=== PATIENT | female | born 1995 | race Two or more races ===

== ENCOUNTER 2025-02-24 08:41 | Day surgery (SDC) | payer BC, OTHER ==
[~2025-02-24] VITALS: Ht 165.1 cm; Wt 84.3 kg
--- NOTE | 2025-02-24 09:01 | ED.PDOC ---
CONSULAR OFFICER HPI Comments THIS IS A 29 YEAR-OLD FEMALE, WITH A HX OF PCOS, WHO PRESENTS TO THE ED WITH A CHIEF COMPLAINT OF VAGINAL BLEED FOR X4 DAYS. PATIENT STATES SHE WAS SEEN BY DR. ESCALERA YESTERDAY, AND WAS DIAGNOSED WITH PROLAPSED UTERINE FIBROIDS. PER PATIENT, SHE WAS TOLD TO COME TO THE ED FOR FIBROID SURGERY, D&C, AND HYSTEROSCOPE TODAY. PATIENT DENIES BEING . PATIENT HAS NO FURTHER COMPLAINTS AT THIS TIME AND OTHERWISE DENIES ABDOMINAL PAIN, CHEST PAIN, DYSURIA, OR FEVER. PATIENT IS ALERT, ORIENTED X 4, AND HAS STEADY GAIT. Chief Complaint: Vaginal Bleed Time Seen by MD: 08:54 Reviewed Notes: Nurses Notes, Medications, Allergies Allergies: Coded Allergies: NO KNOWN ALLERGIES (Unverified , 02/24/25) Information Source: Patient Mode of Arrival: Ambulatory Timing: Days Severity: Moderate Vaginal Discharge: None Vaginal Lesions: None Bleeding Quality: Bright Red, Clotted Vaginal Mass: None Onset Of Mass/Bleeding: Spontaneous Control: None Blood Type: Unknown Symptoms of Possible : None Associated Signs and Symptoms: Vaginal Bleeding Past Medical History Past Medical History (Other): PCOS Surgical History: Denies all surgeries MESSENGER FLOORPERSON History: No Pertinent MESSENGER FLOORPERSON History Family History Family History: Reviewed,noncontributory to illness, No family hx of Cancer, No family hx of DM, No family hx of Heart patrice, No family hx of HTN, No family hx ofKidney patrice, No family hx of Liver patrice, No family hx of Lung patrice, No family hx of Stroke Social History Smoker: Non-Smoker Alcohol: Denies ETOH Use Drugs: Denies Drug Use Lives In: Home Constitutional: denies: chills, diaphoresis, fatigue, fever, malaise, sweats, weakness, others EENTM: denies: blurred vision, double vision, ear bleeding, ear discharge, ear drainage, ear pain, ear ringing, eye pain, eye redness, hearing loss, mouth pain, mouth swelling, nasal discharge, nose bleeding, nose congestion, nose pain, photophobia, tearing, throat pain, throat swelling, voice changes, others Respiratory: denies: cough, hemoptysis, orthopnea, SOB at rest, shortness of breath, SOB with excertion, stridor, wheezing, others Cardiovascular: denies: chest pain, dizzy spells, diaphoresis, Dyspnea on exertion, edema, irregular heart beat, left arm pain, lightheadedness, palpitations, PND, syncope, others Gastrointestinal: denies: abdomen distended, abdominal pain, blood streaked bowels, constipated, diarrhea, dysphagia, difficulty swallowing, hematemesis, melena, nausea, poor appetite, poor fluid intake, rectal bleeding, rectal pain, vomiting, others Genitourinary: reports: abnormal vagina bleeding; denies: burning, dyspareunia, dysuria, flank pain, frequency, hematuria, incontinence, pain, , vagina discharge, urgency, others Neurological: denies: dizziness, fainting, headache, left sided numbness, left sided weakness, numbness, paresthesia, pre-existing deficit, right sided numbness, right sided weakness, seizure, speech problems, tingling, tremors, weakness, others Musculoskeletal: denies: back pain, gout, joint pain, joint swelling, muscle pain, muscle stiffness, neck pain, others Integumetry: denies: bruises, change in color, change in hair/nails, dryness, laceration, lesions, lumps, rash, wounds, others Allergic/Immunocompromised: denies: Difficulty Healing, Frequent Infections, Hives, Itching, others Hematologic/Lymphatic: denies: anemia, blood clots, easy bleeding, easy bruising, swollen glands, others Endocrine: denies: excessive hunger, excessive sweating, excessive thirst, excessive urination, flushing, intolerance to cold, intolerance to heat, une xplained weight gain, unexplained weight loss, others Psychiatric: denies: anxiety, bipolar disorder, depression, hopeless, panic disorder, schizophrenia, sleepless, suicidal, others All Other Systems: Reviewed and Negative Physical Exam General Appearance: No Apparent Distress, Normal HEENT: Normal ENT Inspection, PERRL/EOMI, Pharynx Normal, TMs Normal Neck: Full Range of Motion, Non-Tender, Normal, Normal Inspection Respiratory: Chest Non-Tender, Lungs Clear, No Accessory Muscle Use, No Re spiratory Distress, Normal Breath Sounds Cardiovascular: No Edema, No JVD, No Murmur, No Gallop, Normal Peripheral Pulses, Regular Rate/Rhythm Breast Exam: Deferred Gastrointestinal: No Organomegaly, Non Tender, No Pulsatile Mass, Normal Bowel Sounds, Soft Genitalia: Deferred Pelvic: Normal External Exam, Tender Uterus, Vaginal Bleeding (VAGINAL BLEEDING, NO BLOOD CLOTS. ) Rectal: Deferred Extremities: No calf tenderness, Normal capillary refill, Normal inspection, Normal range of motion, Non-tender, No pedal edema Musculoskeletal : Apperance: Normal Neurologic: Alert, stripper machine operator II-XII nml as Tested, No Motor Deficits, Normal Affect, Normal Mood, No Sensory Deficits Cerebellar Function: Normal Reflexes: Normal Skin: Dry, Normal Color, Warm Peripheral Pulses: 2+ carotid (R), 2+ carotid (L) Lymphatic: No Adenopathy Was a procedure done? Was a procedure done?: No Differential Diagnosis (MESSENGER FLOORPERSON) Vaginal Bleeding: - Threatened, Menstrual Bleeding, UTI, Vaginitis Mass / Lesion: Bartholin Cyst X-Ray, Labs, Meds, VS Vital Signs Date Time Temp Pulse Resp B/P (MAP) Pulse Ox O2 Delivery O2 Flow Rate FiO2 02/24/25 08:43 98.2 102 18 114/77 96 98.2 Lab Test 02/24/25 09:12 02/24/25 08:58 Range/Units White Blood Count 8.3 4.4-10.8 10^3/uL Red Blood Count 5.31 H 4.0-5.20 10^6/uL Hemoglobin 13.8 12.2-16.2 g/dL Hematocrit 40.9 36.0-46.0 % Mean Corpuscular Volume 77.0 L 80.0-100.0 fL Mean Corpuscular Hemoglobin 26.0 L 28.0-32.0 pg Mean Corpuscular Hemoglobin Concent 33.7 32.0-36.0 g/dL Red Cell Distribution Width 16.1 H 11.8-14.3 % Platelet Count 493 H 140-450 10^3/uL Mean Platelet Volume 6.8 L 6.9-10.8 fL Neutrophils (%) (Auto) 69.2 37.0-80.0 % Lymphocytes (%) (Auto) 19.4 10.0-50.0 % Monocytes (%) (Auto) 8.1 0.0-12.0 % Eosinophils (%) (Auto) 2.6 0.0-7.0 % Basophils (%) (Auto) 0.7 0.0-2.0 % Neutrophils # (Auto) 5.7 1.6-8.6 10 ^3/uL Lymphocytes # (Auto) 1.6 0.4-5.4 10 ^3/uL Monocytes # (Auto) 0.7 0-1.3 10 ^3/uL Eosinophils # (Auto) 0.2 0-0.8 10 ^3/uL Basophils # (Auto) 0.1 0-0.2 10 ^3/uL Nucleated Red Blood Cells 0.0 % Prothrombin Time 11.0 9.3-11.8 sec Prothrombin Time INR 1.04 0.9-1.15 Sodium Level 142 136-145 mmol/L Potassium Level 4.5 3.5-5.1 mmol/L Chloride Level 106 98-107 mmol/L Carbon Dioxide Level 28 20-31 mmol/L Anion Gap 8 5-15 Blood Urea Nitrogen 10 9-23 mg/dL Creatinine 0.80 0.550-1.02 mg/dL Glomerular Filtration Rate Calc 101 >90 mL/min BUN/Creatinine Ratio 12.5 10.0-20.0 Serum Glucose 102 74-106 mg/dL Calcium Level 9.2 8.7-10.4 mg/dL Beta HCG, Quantitative 0.3 L 1.5-4.2 mIU/mL Urine Color Light-yellow Yellow Urine Clarity Clear Clear Urine pH 7.5 5.0-9.0 Urine Specific [place] 1.016 1.001-1.035 Urine Protein Negative Negative Urine Ketones Negative Negative Urine Blood 3+ H Negative /uL Urine Nitrite Negative Negative Urine Bilirubin Negative Negative Urine Urobilinogen Normal Negative mg/dL Urine Leukocyte Esterase Trace Negative /uL Urine RBC 494 0 - 4 /hpf Urine Microscopic WBC 1 0-5 /HPF Urine Squamous Epithelial Cells Few <5 /hpf Urine Bacteria Few H None Seen /hpf Urine Mucus Few None Seen Urine Yeast (Budding) Occasional None Seen /hpf Urine Glucose Normal Normal mg/dL Current Medications Medications (Trade) Dose Ordered Sig/Keren Route Start Time Stop Time Status Last Admin Sodium Chloride 1,000 ml @ 1,000 mls/hr Q1H ONCE IV 02/24/25 09:00 02/24/25 09:59 DC 02/24/25 10:[address] [address] Ph: [phone] DIAGNOSTIC IMAGING Diagnostic Imaging Report : [id number] Signed PATIENT: EDI GARCIAARISTIDES AACCT: [id number] UNIT: [id number] : 1995 LOC: ER ROOM / BED: / AGE / SEX: 29 / F ADM STATUS: REG ER SERVICE 0950 ORDERING PHYSICIAN: JOSH JORGE PROCEDURE(s): PELUS - PELVIC REASON: VAGINAL BLEEDING ORDER NUMBER(s): [id number], ACCESSION NUMBER(s): [id number] INDICATION: VAGINAL BLEEDING TECHNIQUE: Multiple real-time grayscale transabdominal and transvaginal sonographic images along with color and duplex Doppler of the uterus and ovaries were obtained. COMPARISON: None FINDINGS: The uterus measures 7.7 x 5.0 x 4.7 cm. The endometrial stripe measur es 0.2 cm. Intrauterine device is visualized in the the endometrial cavity. There is a hyperchoic mass in the cervix with hyperemia measuring 2.4 cm. The right ovary measures 3.8 x 2.2 x 3.2 cm. The left ovary measures 2.9 x 1.8 x 2.4 cm. Subsequent color and duplex Doppler interrogation of the ovaries demonstrated symmetric vascular flow to both ovaries, though this does not exclude the possibility of torsion due to the dual blood supply. IMPRESSION: There is a hyperchoic mass in the cervix with hyperemia measuring 2.4 cm. Recommend correlation with gynecologic exam. Intrauterine device is visualized in appropriate position. X-Ray, Labs, Meds, VS Comment EXTERNAL MEDICAL RECORDS REVIEWED: [NONE] INDEPENDENT HISTORIANS: [NONE] SOCIAL DETERMINANTS OF HEALTH: [NONE] LABS ORDERED: CBC, BETA HCG, UA, BMP, PROTHROMBIN TIME REVIEWED AND INTERPRETED RESULTS: NONE IMAGING ORDERED: PELVIC US TREATMENTS ORDERED: HEPLOCK IV AND SODIUM CHLORIDE 0.9% PROCEDURES PERFORMED: NONE CRITICAL CARE TIME: NONE BASED ON HISTORY OF PRESENT ILLNESS, AND PHYSICAL EXAM, PATIENT WILL BE TRANSFERRED TO DR. ESCALERA FOR CONSULAR OFFICER SURGICAL CARE. PATIENT WENT TO OR AT THIS TIME FOR SURGERY. I HAVE DISCUSSED THE PATIENT WITH THE ATTENDING PHYSICIAN, DR. CAPELLAN, AND HE AGREES WITH THE PATIENT'S PLAN OF CARE AND ADMISSION. Images Reviewed?: Images reviewed and evaluated by me Time of 1ST Reevaluation: 12:01 Reevaluation 1ST: Unchanged Patient Education/Counseling: Diagnosis, Treatment Family Education/Counseling: Diagnosis, Treatment Departure 1 Departure Time of Disposition: 12:01 Impression: Primary Impression: Vaginal bleeding Additional Impression: Mass of cervix Disposition: ADMITTED INPATIENT Admit to: OR Condition: Serious Critical Care Note Critical Care Time?: No Stability Stability form required: Yes Unstable for transfer: Requires medication (Requires Med for stabilization), ED Physician Assesment, Possible rapid decline Heart Score Heart Score: Heart Score Response (Comments) Value History N/A 0 EKG N/A 0 Age N/A 0 Risk Factors N/A 0 Troponin N/A 0 Total 0 I personally scribed for JOSH JORGE ([email or web address]) on 02/24/25 at 09:01. Electronically submitted by Sophie Degroot ([employer]). I personally scribed for JOSH JORGE ([email or web address]) on 02/24/25 at 10:38. Electronically submitted by Sophie Degroot ([employer]). I personally scribed for JOSH JORGE ([email or web address]) on 02/24/25 at 11:15. Electronically submitted by Sophie Degroot ([employer]). I personally scribed for JOSH JORGE ([email or web address]) on 02/24/25 at 11:50. Electronically submitted by Sophie Degroot ([employer]). JOSH JORGE Feb 24, 2025 09:01
[2025-02-24 09:46] LABS: Hematocrit 40.9 % (36.0-46.0); Hemoglobin 13.8 g/dL (12.2-16.2); Mean Corpuscular Hemoglobin 26.0 pg (28.0-32.0); Mean Corpuscular Volume 77.0 fL (80.0-100.0); Nucleated Red Blood Cells % 0.0 %
[2025-02-24 09:57] LABS: Chloride 106 mmol/L (98-107); Potassium 4.5 mmol/L (3.5-5.1); Sodium 142 mmol/L (136-145)
[2025-02-24 09:58] LABS: Anion Gap 8 (5-15); Carbon Dioxide 28 mmol/L (20-31)
[2025-02-24 09:59] LABS: Calcium 9.2 mg/dL (8.7-10.4)
--- NOTE | 2025-02-24 10:02 | DVHHP ---
ADMIT DATE: 02/24/2025 CHIEF COMPLAINT: Vaginal bleeding. HISTORY OF PRESENT ILLNESS: The patient is a 29-year-old 0, para 0, being evaluated for heavy vaginal bleeding which started 4 days ago. Patient had an IUD placed months ago. At that time, there was no evidence of any prolapsing myoma. Today on presentation, the patient clearly has a prolapsing myoma and she also has an IUD in place. Her Pap smear was months ago which was essentially normal. PAST MEDICAL HISTORY: PCOS. PAST SURGICAL HISTORY: None. SOCIAL HISTORY: None. FAMILY HISTORY: None. GROWTH HACKER HISTORY: Nulligravid ALLERGIES: No known drug allergies. REVIEW OF SYSTEMS: Consistent with HPI. PHYSICAL EXAMINATION: VITAL SIGNS: Stable. Afebrile. HEENT: Within normal limits. CARDIOVASCULAR: Regular rate and rhythm. LUNGS: Clear to auscultation. BREASTS: Symmetrical. No masses. ABDOMEN: Soft, nontender. PELVIC: Nontender. External genitalia are within normal limits. Vagina normal. Cervix grossly normal. Enlarged protruding mass 5 cm out of the cervix noted. Uterus 7 weeks size. Adnexa nonpalpable. EXTREMITIES: No clubbing, cyanosis or edema. 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 * History of PCOS. IUD in place. PLAN: D and C hysteroscopy, possible removal of IUD. The patient is fully aware and consented, gives her consent. Risks, complications of surgery including anesthesia discussed with the patient. The patient is fully aware. She wishes to proceed with planned procedure. DO JOSE Roberto TID: [id number] RECEIPT: [id number]
[2025-02-24 10:03] LABS: Glucose 102 mg/dL (74-106)
[2025-02-24 10:04] LABS: BUN/Creatinine Ratio 12.5 (10.0-20.0); Blood Urea Nitrogen 10 mg/dL (9-23)
[2025-02-24] MEDS: SODIUM CHLORIDE 0.9% 1,000 ML IV ONE (10:05)
[2025-02-24 10:09] LABS: INR 1.04 (0.9-1.15); Prothrombin Time 11.0 sec (9.3-11.8)
[2025-02-24 10:23] LABS: Urine Budding Yeast OCCASIONAL /hpf (None Seen); Urine Protein, UAD Negative (Negative)
--- NOTE | 2025-02-24 11:12 | DVH ---
INDICATION: VAGINAL BLEEDING TECHNIQUE: Multiple real-time grayscale transabdominal and transvaginal sonographic images along wit h color and duplex Doppler of the uterus and ovaries were obtained. COMPARISON: None FINDINGS: The uterus measures 7.7 x 5.0 x 4.7 cm. The endometrial stripe measures 0.2 cm. Intrauterin e device is visualized in the the endometrial cavity. There is a hyperchoic mass in the cervix with h yperemia measuring 2.4 cm. The right ovary measures 3.8 x 2.2 x 3.2 cm. The left ovary measures 2.9 x 1.8 x 2.4 cm. Subsequent color and duplex Doppler interrogation of the ovaries demonstrated symmetric vascular flow to both ovaries, though this does not exclude the possibility of torsion due to the dual blood suppl y. IMPRESSION: There is a hyperchoic mass in the cervix with hyperemia measuring 2.4 cm. Recommend correlation with gynecologic exam. Intrauterine device is visualized in appropriate position.
[2025-02-24] MEDS ORDERED: ceFAZolin 2 GM/D5W50ml 50 ML IV ONE (11:59)
[2025-02-24] MEDS ORDERED: fentaNYL CITRATE 100 MCG/2 ML VL ONE (13:52)
[2025-02-24] MEDS ORDERED: PROPOFOL 10 MG/ML 20 ML IV ONE (13:52)
[2025-02-24] MEDS ORDERED: MIDAZOLAM HCL 2MG/2ML 2ml VIAL (1mg/ml) ONE (14:16)
[2025-02-24] MEDS ORDERED: HYDROmorphone HCL 2 MG/ML VL/or syr ONE (14:29)
[2025-02-24] MEDS: FERRIC SUBSULFATE TOPICAL SOLN 30 ML BTL ONE ×2 (14:50)
[2025-02-24 15:05] VITALS: PULSE 97; RESP 20; TEMP 97.9; O2SAT 94
[2025-02-24] MEDS ORDERED: HYDR-4072 PO (15:14)
[2025-02-24] MEDS ORDERED: ZOFR4T PO (15:14)
[2025-02-24] MEDS ORDERED: HYDROmorphone HCL 2 MG/ML VL/or syr IV PRN (15:15)
[2025-02-24] MEDS ORDERED: METOCLOPRAMIDE HCL 5MG/ml INJ 2ml VIAL IV PRN (15:15)
[2025-02-24] MEDS ORDERED: ONDANSETRON HCL 4 MG/2 ML VIAL IV PRN ×2 (15:15→15:30)
[2025-02-24] MEDS ORDERED: ACETAMINOPHEN IV 1000 MG/100ML (10MG/ML) IV PRN (15:15)
[2025-02-24] MEDS ORDERED: LACTATED RINGER'S 1,000 ML IV SCH (15:30)
[2025-02-24 16:20] VITALS: BP 115/72; PULSE 92; RESP 14; O2SAT 92
--- NOTE | 2025-02-24 16:41 | POSTOP ---
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 Date 02/24/25 Time 16:23 Visit Coding OBGYN Date of Service: Feb 24, 2025 Billing Provider: PEGGY MUNIZ DO HOUSEKEEPING ROOM ATTENDANT Common Visit Codes: 95149-[id number] OBS CARE (HIGH) HOUSEKEEPING ROOM ATTENDANT Procedure Codes: 09396-[id number], SURG: W/PEGGY SANTACRUZ DO Feb 24, 2025 16:41
--- NOTE | 2025-02-24 16:46 | DVHDS2 ---
Physician Discharge Progress N Final Diagnosis: abnormal vag bleeding due to distorted cervical mass pending pathology Operations or Procedures: Operations or Procedures d and c ,hysterosocpy,excision of cervical mass Condition on Discharge: Good Disposition: Home Discharge Instructions: Diet: Regular Activity: Light activity Follow Up/Referral: saturday Medications: norris,norco Follow Up Care: Specialist: Discharge Statement: "Patient was advised to return to the ER or call 911 if any headaches, dizziness, shortness of breath, chest pain, abdominal pain, bleeding, fevers, or worsening of medical condition. Patient was counseled about treatment plan, medications, possible side effects, patientverbalized understanding. All questions were answered to the best of my ability. This discharge took greater then 30 minutes in planning, reviewing documentation, counseling the patient, and discussing with other team members." Visit Coding OBGYN Date of Service: Feb 24, 2025 Billing Provider: PEGGY ESCALERA DO TRUSS PULLER HELPER Common Visit Codes: 61452-[id number] OBS CARE (HIGH) TRUSS PULLER HELPER Consultation Codes: 96990-[id number] CONSULT <80MIN TRUSS PULLER HELPER Procedure Codes: 53397-[id number], SURG: W/EA PEGGY ESCALERA DO Feb 24, 2025 16:46
--- NOTE | 2025-02-24 17:41 | DVHOP ---
DATE OF SURGERY: 02/24/2025 PREOPERATIVE DIAGNOSIS: Abnormal vaginal bleeding, rule out prolapsing myoma versus cervical mass documented on ultrasound today. POSTOPERATIVE DIAGNOSES: * Abnormal vaginal bleeding secondary to distorted cervical mass in inferior aspect of the cervix localized. * No evidence of prolapsing myoma. PROCEDURE: Partial excision of inferior cervical mass, D and C, hysteroscopy. SURGEONS: Dr. Argelia Muniz. ANESTHESIOLOGIST: Dr. Cesar. ESTIMATED BLOOD LOSS: 100 mL. ANESTHESIA: MAC. TISSUE TO PATHOLOGY: Fragments of cervical tissue, which appeared very friable. COMPLICATIONS: None. FINDINGS: This mass was approximately 2 cm. DESCRIPTION OF PROCEDURE: The patient was taken to the operating room where she was placed in a dorsal lithotomy position. MAC anesthesia was administered. She was prepped and draped in the usual sterile fashion. Examination under anesthesia revealed vagina to be normal. No lymphadenopathy was appreciated. Anterior aspect of the cervix was smooth. Inferior aspect of the cervix revealed this friable tissue. There was no evidence of prolapsing myoma. Cervix was grasped using sharp tooth tenaculum anteriorly. Uterus sounded to 7 cm. Hysteroscope was placed. Uterus was empty of any myoma or prolapsing myoma. Bilateral ostium were visualized. At this point, IUD expelled out and the hysteroscope was removed. The lower aspect of the cervix had some friable tissue, which was excised and sent to pathology. The bleeding was then managed by cauterization as well as salt solution. Estimated blood loss was noted to be 100 mL. Specimen was sent for pathology. All instruments were removed from the vagina and cervix. The patient tolerated the procedure well. She was taken to the recovery room in stable condition. DO HUAN Roberto/ELÍAS TID: [id number] RECEIPT: [id number]
[2025-03-15] MEDS ORDERED: CABE0.5T PO (10:10)
[2025-03-15] MEDS ORDERED: LEUP22.54 IM (10:10)
== END 2025-02-24 16:40 | disposition home or self-care (01) ==
LOC: EEVIPCON 08:41 → ER 08:41 → SUR 10:02
PROVIDERS: ATTEND Obstetrics & Gynecology
DX: C53.8 Malignant neoplasm of overlapping sites of cervix uteri (principal); N93.9 Abnormal uterine and vaginal bleeding, unspecified; E28.2 Polycystic ovarian syndrome; D25.9 Leiomyoma of uterus, unspecified; N81.4 Uterovaginal prolapse, unspecified; Z97.5 Presence of (intrauterine) contraceptive device
CPT/HCPCS: 36415; 57500; 58579; 76856; 80048; 81001; 84702; 85025; 85610; 86850; 86900; 86901; 88305; 88342; 96360; 99285; J0690; J1100; J1171; J2250; J2704; J3010

== ENCOUNTER 2025-03-17 06:24 | Inpatient (IN) | payer BC ==
[2025-03-15 09:58] LABS: Hematocrit 41.0 % (36.0-46.0); Hemoglobin 13.9 g/dL (12.2-16.2); Mean Corpuscular Hemoglobin 26.6 pg (28.0-32.0); Mean Corpuscular Volume 78.6 fL (80.0-100.0); Nucleated Red Blood Cells % 0.0 %
[2025-03-15 10:44] LABS: Albumin 3.7 g/dL (3.2-4.8); Alkaline Phosphatase 64 U/L (46-116); Anion Gap 8 (5-15); BUN/Creatinine Ratio 8.1 (10.0-20.0); Carbon Dioxide 25 mmol/L (20-31); Glucose 96 mg/dL (74-106); Potassium 4.0 mmol/L (3.5-5.1); Sodium 142 mmol/L (136-145); Total Protein 6.2 g/dL (5.7-8.2)
[2025-03-15 10:45] LABS: Alanine Aminotransferase 48 U/L (7-40); Bilirubin, Total 0.3 mg/dL (0.2-1.0); Blood Urea Nitrogen 7 mg/dL (9-23); Calcium 8.7 mg/dL (8.7-10.4); Chloride 109 mmol/L (98-107)
[2025-03-15 12:23] LABS: Urine Protein, UAD Negative (Negative)
[2025-03-15 16:02] LABS: INR 0.96 (0.9-1.15); Partial Thromboplastin Time 28.6 SEC (24.5-34.5); Prothrombin Time 10.2 sec (9.3-11.8)
[~2025-03-17] VITALS: Ht 165.1 cm; Wt 93.7 kg
[~2025-03-17 06:24] MED LIST: CABE0.5T PO; LEUP22.54 IM
[2025-03-17] MEDS ORDERED: fentaNYL CITRATE 100 MCG/2 ML VL ONE (07:18)
[2025-03-17] MEDS ORDERED: fentaNYL CITRATE 5 ML ONE (07:19)
[2025-03-17] MEDS ORDERED: MIDAZOLAM HCL 2MG/2ML 2ml VIAL (1mg/ml) ONE (07:19)
[2025-03-17] MEDS ORDERED: HYDROmorphone HCL 2 MG/ML VL/or syr ONE (07:19)
[2025-03-17] MEDS ORDERED: ONDANSETRON HCL 4 MG/2 ML VIAL ONE (08:08)
[2025-03-17] MEDS ORDERED: PROPOFOL 10 MG/ML 20 ML IV ONE (08:08)
[2025-03-17] MEDS ORDERED: fentaNYL CITRATE 100 MCG/2 ML VL IV PRN (09:15)
[2025-03-17] MEDS ORDERED: ONDANSETRON HCL 4 MG/2 ML VIAL IV PRN (09:15)
[2025-03-17] MEDS ORDERED: HYDROmorphone HCL 2 MG/ML VL/or syr IV PRN (09:15)
[2025-03-17] MEDS ORDERED: MIDAZOLAM HCL 2MG/2ML 2ml VIAL (1mg/ml) IV PRN (09:15)
[2025-03-17] MEDS ORDERED: hydrALAZINE HCL 20 MG/ML VL IV PRN (09:15)
[2025-03-17] MEDS ORDERED: MORPHINE SULFATE 4 MG/ML SYR/VIAL IV PRN (09:15)
--- NOTE | 2025-03-17 09:52 | DVHOP2 ---
Operative Report Operative report: Date of Surgery: 03/17/2025 Preoperative diagnosis: Cervical cancer stage IB1 Post operative diagnosis: Cervical cancer Stage IB1 Surgeon: Berlin Schroeder MD Procedure: Laparotomy, radical hysterectomy, bilateral salpingectomy, bilateral pelvic and para-aortic lymphadenectomy, bilateral ovarian transposition Procedure detail: The patient was taken to the operating room and was placed on the operating room table, general anesthesia was initiated, she was positioned in dorsal lithotomy position using Fuad stirrups. She was prepped and draped in the normal standard fashion, Urias catheter was inserted. Surgical time-out was performed, perioperative antibiotics were given, a low midline incision was made from the symphysis pubis towards the umbilicus, this incision was later extended to above the umbilicus in order to achieve adequate exposure. The subcutaneous tissue was divided, fascia was incised in the midline, peritoneum was entered, peritoneal incision was extended superiorly and inferiorly, intraperitoneal cavity was explored, there was a small amount of free fluid in the pelvis which was removed and submitted to the pathology for cytologic evaluation. The ovaries were large secondary to recent ovarian stimulation. There was no evidence of metastatic disease, uterus was normal-appearing, fallopian tubes appeared normal. There were no evidence of metastatic disease in the upper abdomen, diaphragm was smooth, liver was normal, no palpable masses identified, stomach, omentum, small and large bowel were examined and appeared unaffected. There were no enlarged retroperitoneal lymphadenopathy. Round ligament was divided, peritoneum lateral to the infundibulopelvic ligament was incised cephalad, retroperitoneum was entered, ureter was identified in the retroperitoneal space. Fallopian tube was from the ovary along the mesosalpinx. Utero-ovarian ligament was ligated and cut, at the end of the operation the ovaries were stitched at the paracolic gutters to perform ovarian transposition. The perirectal and paravesical spaces were developed, ureter was mobilized laterally, the rectum was from the vagina, avascular planes of for a rectovaginal septum were developed, uterosacral ligament was incised at its mid length. Posterior peritoneum was divided down to the level of the uterosacral ligament. Similar procedure was completed on the opposite side. Anteriorly a bladder flap was created and avascular planes of vesicovaginal septum were developed. Anterior branch of internal iliac artery at the source of the uterine vessels was ligated and cut, the cardinal ligament was then ligated and divided, then the ureter was unroofed and the uterine vessels were ligated and cut at the level of crossing over the ureter. Similar procedure was completed on the opposite side, then colpotomy was performed, vagina was incised at approximately 2 cm below the cervical vaginal junction. The specimen containing the uterus and cervix and fallopian tubes and parametrial and upper vagina were removed and submitted to the pathology lab. Vaginal cuff was then reapproximated using 0 Vicryl suture in running fashion, a 2nd layer of same suture was used to reinforce the closure line. Then I performed pelvic and aortic lymphadenectomy, the paravesical and pararectal spaces were previously developed, lymphatic bundle off the level of the external iliac vessels were stripped and removed and submitted to the pathology lab, at the obturator fossa also the lymph nodes were from the external iliac vein and obturator nerve was preserved intact. The lymph nodes at the lateral border of the common iliac were also removed and submitted to the pathology lab. Similar procedure was completed on the opposite side. Then para-aortic lymphadenectomy was performed and lymph nodes at the lateral border of the inferior vena cava and over vena cava and between the aorta and vena cava were removed and submitted to the pathology lab. Hemostasis was assured. Then fascia was reapproximated using a 1. Looped PDS suture in running fashion. The skin was then reapproximated using 3-0 Monocryl suture in subcuticular fashion. Patient tolerated the procedure well and was extubated and transferred to recovery room after the operation. All counts were correct at the end of the operation. EBL: 300 ml Complications: None Specimens: Uterus, cervix, fallopian tubes, right and left parametrial, upper vagina, right and left pelvic and para-aortic lymph nodes, peritoneal washing Drains: none Urine output: 200 mL Visit Coding OBGYN Date of Service: Mar 17, 2025 Billing Provider: BERLIN SCHROEDER MD BUILDING DISMANTLER Common Visit Codes: [id number] INP/OBS CARE (HIGH) BUILDING DISMANTLER Procedure Codes: 23763-YMP BERLIN SCHROEDER MD Mar 17, 2025 09:52
[2025-03-17] MEDS ORDERED: SUGAMMADEX 200mg/2ml Vial (100MG/ML) IV ONE (09:55)
[2025-03-17 09:57] VITALS: PULSE 93; RESP 14
[2025-03-17] MEDS: GABAPENTIN 300 MG CAP PO SCH (10:00)
[2025-03-17] MEDS: ceFAZolin 2 GM/D5W50ml 50 ML IV ONE (10:08)
[2025-03-17] MEDS: BUPIVACAINE 0.25% INJ 50ML VIAL ONE ×2 (10:08→10:12)
[2025-03-17] MEDS: SUCCINYLCHOLINE CHLORIDE 20 MG/ML 10ML VIAL IV ONE (10:13)
[2025-03-17] MEDS ORDERED: NITROGLYCERIN 0.4 MG SL TAB SL PRN (10:15)
[2025-03-17] MEDS ORDERED: MORPHINE SULFATE INJ 2 MG/ml SYRG IV PRN (10:15)
[2025-03-17] MEDS: ACETAMINOPHEN IV 1000 MG/100ML (10MG/ML) IV ONE (10:17)
--- NOTE | 2025-03-17 10:34 | DVHINCON2 ---
Date Seen: Mar 17, [address] ESCALERA Allergies: Coded Allergies: NO KNOWN ALLERGIES (Unverified , 02/24/25) Home Meds Reported Medications Cabergoline (Cabergoline) 0.5 Mg Tab, 0.5 MG PO, TAB 03/15/25 Leuprolide Acetate (3 Month) (Leuprolide Acetate) 22.5 Mg Inj, 22.5 MG IM, INJ 03/15/25 Current Medications Current Medications Medications (Trade) Dose Ordered Sig/Keren Route PRN Reason Start Time Stop Time Status Last Admin Ondansetron HCl (Zofran) 4 mg ONCE PRN IV NAUSEA / VOMITING 03/17/25 09:15 03/17/25 09:32 DC Hydralazine HCl (Apresoline Injection) 5 mg Q10M PRN IV SBP>160 03/17/25 09:15 03/17/25 10:06 DC Morphine Sulfate 2 mg Q2HPRN PRN IV BREAKTHROUGH PAIN (7-10) 03/17/25 09:15 03/17/25 09:32 DC Midazolam HCl (Versed Injection) 1 mg Q10M PRN IV ANXIETY 03/17/25 09:15 03/17/25 09:56 DC Ephedrine Sulfate (ePHEDrine SULFATE) 10 mg Q10M PRN IV SBP LESS THAN 90 03/17/25 09:15 03/17/25 09:56 DC Fentanyl Citrate 25 mcg Q1HP PRN IV BREAKTHROUGH PAIN (7-10) 03/17/25 09:15 03/17/25 09:33 DC Hydromorphone HCl (Dilaudid Injection) 0.5 mg Q10M PRN IV SEVERE PAIN (7-10 PAIN SCALE) 03/17/25 09:15 03/17/25 09:56 DC Gabapentin (Neurontin Capsule) 600 mg DAILY PO 03/17/25 10:00 Morphine Sulfate 2 mg Q3HPRN PRN IV PAIN SCALE 7 THRU 10 03/17/25 09:45 Ondansetron HCl (Zofran) 4 mg Q6HPRN PRN IV NAUSEA / VOMITING 03/17/25 09:45 Lactated Ringer's 1,000 ml @ 150 mls/hr Q6H40M IV 03/17/25 09:45 Acetaminophen (Ofirmev) 1,000 mg Q6HR IV 03/17/25 12:00 Ketorolac Tromethamine (Toradol Injection) 15 mg Q6HPRN IV 03/17/25 12:00 03/22/25 11:59 Piperacillin Sod/ Tazobactam Sod 100 ml @ 25 mls/hr Q6HR IV 03/17/25 12:00 Nitroglycerin (Ntrostat Sublingual) 0.4 mg Q5MINP PRN SL FOR CHEST PAIN 03/17/25 10:15 Morphine Sulfate 2 mg Q30M PRN IV FOR CHEST PAIN 03/17/25 10:15 Vital Signs Vital Signs Date Time Temp Pulse Resp B/P (MAP) Pulse Ox O2 Delivery O2 Flow Rate FiO2 03/17/25 09:57 Room Air 97 03/17/25 09:57 93 14 03/17/25 06:33 99.0 110/61 (77) 92 99.0 Labs/Diagnostic Data Labs Test 03/15/25 15:42 03/15/25 09:47 Range/Units Prothrombin Time 10.2 9.3-11.8 sec Prothrombin Time INR 0.96 0.9-1.15 Activated Partial Thromboplast Time 28.6 24.5-34.5 SEC White Blood Count 10.6 4.4-10.8 10^3/uL Red Blood Count 5.22 H 4.0-5.20 10^6/uL Hemoglobin 13.9 12.2-16.2 g/dL Hematocrit 41.0 36.0-46.0 % Mean Corpuscular Volume 78.6 L 80.0-100.0 fL Mean Corpuscular Hemoglobin 26.6 L 28.0-32.0 pg Mean Corpuscular Hemoglobin Concent 33.9 32.0-36.0 g/dL Red Cell Distribution Width 18.1 H 11.8-14.3 % Platelet Count 320 140-450 10^3/uL Mean Platelet Volume 7.2 6.9-10.8 fL Neutrophils (%) (Auto) 76.6 37.0-80.0 % Lymphocytes (%) (Auto) 15.4 10.0-50.0 % Monocytes (%) (Auto) 6.9 0.0-12.0 % Eosinophils (%) (Auto) 0.6 0.0-7.0 % Basophils (%) (Auto) 0.5 0.0-2.0 % Neutrophils # (Auto) 8.1 1.6-8.6 10 ^3/uL Lymphocytes # (Auto) 1.6 0.4-5.4 10 ^3/uL Monocytes # (Auto) 0.7 0-1.3 10 ^3/uL Eosinophils # (Auto) 0.1 0-0.8 10 ^3/uL Basophils # (Auto) 0.1 0-0.2 10 ^3/uL Nucleated Red Blood Cells 0.0 % Urine Color Yellow Yellow Urine Clarity Clear Clear Urine pH 5.5 5.0-9.0 Urine Specific [place] 1.024 1.001-1.035 Urine Protein Negative Negative Urine Ketones Negative Negative Urine Blood Negative Negative /uL Urine Nitrite Negative Negative Urine Bilirubin Negative Negative Urine Urobilinogen Normal Negative mg/dL Urine Leukocyte Esterase Negative Negative /uL Urine Glucose Normal Normal mg/dL Urine Test Negative Negative Sodium Level 142 136-145 mmol/L Potassium Level 4.0 3.5-5.1 mmol/L Chloride Level 109 H 98-107 mmol/L Carbon Dioxide Level 25 20-31 mmol/L Anion Gap 8 5-15 Blood Urea Nitrogen 7 L 9-23 mg/dL Creatinine 0.86 0.550-1.02 mg/dL Glomerular Filtration Rate Calc 93 >90 mL/min BUN/Creatinine Ratio 8.1 L 10.0-20.0 Serum Glucose 96 74-106 mg/dL Calcium Level 8.7 8.7-10.4 mg/dL Total Bilirubin 0.3 0.2-1.0 mg/dL Aspartate Amino Transferase (AST) 25 13-40 U/L Alanine Aminotransferase (ALT) 48 H 7-40 U/L Alkaline Phosphatase 64 46-116 U/L Total Protein 6.2 5.7-8.2 g/dL Albumin 3.7 3.2-4.8 g/dL Luteinizing Hormone 58.7 IU/L Beta HCG, Quantitative 0.3 L 1.5-4.2 mIU/mL Assessment SEE DICTATED NOTE Plan discussed with: Patient Date of Service: Mar 17, 2025 Billing Provider: EDUARDO MEZA MD Common Visit Codes: [id number] INP/OBS CARE (HIGH) EDUARDO MEZA MD Mar 17, 2025 10:34
[2025-03-17] MEDS: ONDANSETRON HCL 4 MG/2 ML VIAL IV PRN ×2 (10:44→19:30)
--- NOTE | 2025-03-17 11:24 | DVHINCON2 ---
DATE OF CONSULTATION: 03/17/2025 INTERNAL MEDICINE CONSULT HISTORY OF PRESENT ILLNESS: The patient is a 29-year-old lady who is admitted after she underwent hysterectomy for a diagnosis of cervical cancer. The patient at this time denies any significant pain. No chest pain, no shortness of breath, no nausea or vomiting. REVIEW OF SYSTEMS: Review of rest of the systems is otherwise currently negative. PAST MEDICAL HISTORY: No significant illness in the past. MEDICATIONS: She takes cabergoline 0.5 mg at bedtime. ALLERGIES: No known drug allergies. SOCIAL HISTORY: Denies smoking or alcohol. FAMILY HISTORY: Negative. PHYSICAL EXAMINATION: GENERAL: The patient is awake, alert. VITAL SIGNS: Temperature of 99, pulse 93 per minute, blood pressure 110/61. HEENT: Unremarkable. NECK: There is no JVD. No pedal edema. LUNGS: Lungs are equal bilaterally. No added sounds. CARDIOVASCULAR: S1 and S2 is regular. No murmurs. ABDOMEN: Abdomen is soft. Bowel sounds are hypoactive. NEUROLOGIC: Nonfocal. MUSCULOSKELETAL: Normal. ASSESSMENT AND PLAN: * Status post hysterectomy with bilateral salpingectomy and bilateral ovarian transposition. The patient will be placed on IV fluids and pain medication and followed up by Dr. Gatica. * Status post egg retrieval for which she will continue on [place]. * Obesity. MD STEPH RodriguezN/EKT TID: [id number] RECEIPT: [id number]
[2025-03-17 12:05] VITALS: PULSE 78; RESP 18; O2SAT 98
[2025-03-17] MEDS: PIPERACILLIN-TAZOB 3.375GM 100 ML IV SCH (12:11)
[2025-03-17] MEDS: KETOROLAC TROMETH 30 MG/ML 1ML VIAL IV SCH (12:12)
[2025-03-17] MEDS: LACTATED RINGER'S 1,000 ML IV SCH (12:12)
--- NOTE | 2025-03-17 12:54 | DVHPN2 ---
Chief Complaints Patient reports: No new complaints Nursing reports: No new complaints Objective Vitals Vital Signs Date Time Temp Pulse Resp B/P (MAP) Pulse Ox O2 Delivery O2 Flow Rate FiO2 03/17/25 11:12 79 14 110/70 (83) 97 03/17/25 10:57 Nasal Cannula 3.0 95 03/17/25 09:57 98.7 98.7 Medications Current Medications Medications (Trade) Dose Ordered Sig/Keren Route PRN Reason Start Time Stop Time Status Last Admin Acetaminophen (Ofirmev) 1,000 mg Q6HR IV 03/17/25 12:00 Gabapentin (Neurontin Capsule) 600 mg DAILY PO 03/17/25 10:00 Ketorolac Tromethamine (Toradol Injection) 15 mg Q6HPRN IV 03/17/25 12:00 03/22/25 11:59 03/17/25 12:12 Lactated Ringer's 1,000 ml @ 150 mls/hr Q6H40M IV 03/17/25 09:45 03/17/25 12:12 Morphine Sulfate 2 mg Q30M PRN IV FOR CHEST PAIN 03/17/25 10:15 Morphine Sulfate 2 mg Q3HPRN PRN IV PAIN SCALE 7 THRU 10 03/17/25 09:45 Nitroglycerin (Ntrostat Sublingual) 0.4 mg Q5MINP PRN SL FOR CHEST PAIN 03/17/25 10:15 Ondansetron HCl (Zofran) 4 mg Q6HPRN PRN IV NAUSEA / VOMITING 03/17/25 09:45 03/17/25 10:44 Patient Own Medication 0.5 mg QPM PO 03/17/25 18:00 Piperacillin Sod/ Tazobactam Sod 100 ml @ 25 mls/hr Q6HR IV 03/17/25 12:00 03/17/25 12:11 General: Normal Lungs: Normal Cardiovascular: Normal Abdominal: Soft Extremities: Normal Studies Laboratory Tests 03/15/25 09:47 Test 03/15/25 09:47 Range/Units Serum Glucose 96 74-106 mg/dL Ass/Plan Assessment s/p expl lap,radical hysterectomy,ln biopsy and transposition of bilat ovaries s/p egg reterival with ovarian hyperstimulation Plan supportive care Visit Coding OBGYN Date of Service: Mar 17, 2025 Billing Provider: PEGGY ESCALERA DO PLANT PROPAGATOR Common Visit Codes: [id number] INP/OBS CARE(HIGH) PEGGY ESCALERA DO Mar 17, 2025 12:54
[2025-03-17] MEDS: ACETAMINOPHEN IV 1000 MG/100ML (10MG/ML) IV SCH (12:58)
--- NOTE | 2025-03-17 12:59 | POSTOP ---
Post-Operative Note Post-Operative Note Preop Diagnosis cervical ca stage 1b1 Postop Diagnosis: same Operation performed expl lap,radical hysterectomy with bs,bilat pelvic and para aortica lymphenedctomy,bilat transposition of ovaries Specimen cx,uterus,left and right parametrial resection,para aortic lymh bilat and bilat pelvic ln ,bilat salpingectomy Anesthesia: General Anesthesiologist: yesenia Blood Loss(fluid mgmt) 200ml Surgeon Berlin Schroeder MD Benefits Sales Consultant cari henson,nick do Implant na Complications & Mgmt none Date 03/17/25 Time 12:55 BERLIN SCHROEDER MD Mar 17, 2025 12:59
[2025-03-17 13:00] VITALS: BP 117/83; PULSE 91; RESP 18; TEMP 98.8; O2SAT 93
[2025-03-17 17:00] VITALS: BP 99/71; PULSE 86; RESP 17; TEMP 98.6; O2SAT 93
[2025-03-17] MEDS: CABERGOLINE 0.5 MG PO SCH (18:00)
[2025-03-17 20:00] VITALS: BP 92/40; PULSE 75; RESP 18; O2SAT 95
[2025-03-17] MEDS: SODIUM CHLORIDE 0.9% 500 ML IV ONE (20:17)
[2025-03-17] MEDS: GABAPENTIN 300 MG CAP PO ONE (20:18)
[2025-03-17 21:00] VITALS: BP 98/44; PULSE 77; RESP 16; TEMP 98.1; O2SAT 100
[2025-03-17] MEDS: MORPHINE SULFATE INJ 2 MG/ml SYRG IV PRN (21:02)
[2025-03-17 21:41] LABS: Hematocrit 33.0 % (36.0-46.0); Hemoglobin 11.0 g/dL (12.2-16.2); Mean Corpuscular Hemoglobin 26.0 pg (28.0-32.0); Mean Corpuscular Volume 78.3 fL (80.0-100.0); Nucleated Red Blood Cells % 0.0 %
[2025-03-17 22:02] LABS: Alkaline Phosphatase 52 U/L (46-116); Anion Gap 11 (5-15); BUN/Creatinine Ratio 9.4 (10.0-20.0); Bilirubin, Total 0.4 mg/dL (0.2-1.0); Chloride 106 mmol/L (98-107); Potassium 4.3 mmol/L (3.5-5.1); Sodium 136 mmol/L (136-145)
[2025-03-17 22:03] LABS: Alanine Aminotransferase 42 U/L (7-40); Albumin 3.1 g/dL (3.2-4.8); Blood Urea Nitrogen 8 mg/dL (9-23); Calcium 7.8 mg/dL (8.7-10.4); Carbon Dioxide 19 mmol/L (20-31); Glucose 184 mg/dL (74-106); Total Protein 5.1 g/dL (5.7-8.2)
[2025-03-17 22:04] LABS: INR 0.98 (0.9-1.15); Partial Thromboplastin Time 32.5 SEC (24.5-34.5); Prothrombin Time 10.4 sec (9.3-11.8)
[2025-03-18] VITALS (8 sets, daily range): BP systolic 94–113; BP diastolic 51–74; PULSE 77–111; RESP 17–18; TEMP 97.3–98.9; O2SAT 90–98
[2025-03-18 07:03] LABS: Hematocrit 29.6 % (36.0-46.0); Hemoglobin 9.9 g/dL (12.2-16.2); Mean Corpuscular Hemoglobin 25.9 pg (28.0-32.0); Mean Corpuscular Volume 77.8 fL (80.0-100.0); Nucleated Red Blood Cells % 0.0 %
[2025-03-18 07:32] LABS: Alkaline Phosphatase 48 U/L (46-116); Anion Gap 10 (5-15); BUN/Creatinine Ratio 11.5 (10.0-20.0); Blood Urea Nitrogen 9 mg/dL (9-23)
[2025-03-18 07:33] LABS: Bilirubin, Total 0.3 mg/dL (0.2-1.0)
[2025-03-18 07:36] LABS: Alanine Aminotransferase 40 U/L (7-40); Albumin 2.9 g/dL (3.2-4.8); Calcium 7.9 mg/dL (8.7-10.4); Carbon Dioxide 19 mmol/L (20-31); Chloride 109 mmol/L (98-107); Glucose 161 mg/dL (74-106); Potassium 4.5 mmol/L (3.5-5.1); Sodium 138 mmol/L (136-145); Total Protein 5.0 g/dL (5.7-8.2)
--- NOTE | 2025-03-18 08:40 | DVHPN2 ---
Progress Note Date Seen: Mar 18, 2025 Medical Necessity Reason Pt with a Central, PICC or Fol: No Subjective Patient reports: No new complaints Review of Systems: HEENT:Normal, CVS:Normal, RESPIRATORY:Normal, GI:Normal, :Normal, MSK:Normal, NEURO:Normal Objective vital signs Vital Sign Date Time Temp Pulse Resp B/P (MAP) Pulse Ox O2 Delivery O2 Flow Rate FiO2 03/18/25 08:06 85 20 94/51 03/18/25 05:00 97.8 90 97.8 03/17/25 20:00 Nasal Cannula* 2 28 Total Intake and Output 03/17/25 03/17/25 03/18/25 15:00 23:00 07:00 Intake Total 700 ml 1850 ml Output Total 450 ml 1850 ml Balance 250 ml 0 ml medications Current Medications Medications Dose Ordered Sig/Keren Route Start Time Stop Time Status Last Admin Dose Admin Gabapentin 600 mg DAILY PO 03/17/25 10:00 Morphine Sulfate 2 mg Q3HPRN PRN IV 03/17/25 09:45 03/18/25 08:06 2 MG Lactated Ringer's 1,000 ml @ 150 mls/hr Q6H40M IV 03/17/25 09:45 03/18/25 05:43 150 MLS/HR Acetaminophen 1,000 mg Q6HR IV 03/17/25 12:00 03/18/25 05:43 1,000 MG Ketorolac Tromethamine 15 mg Q6HPRN IV 03/17/25 12:00 03/22/25 11:59 03/18/25 05:34 15 MG Piperacillin Sod/ Tazobactam Sod 100 ml @ 25 mls/hr Q6HR IV 03/17/25 12:00 03/18/25 05:43 25 MLS/HR Nitroglycerin 0.4 mg Q5MINP PRN SL 03/17/25 10:15 Morphine Sulfate 2 mg Q30M PRN IV 03/17/25 10:15 Patient Own Medication 0.5 mg QPM PO 03/17/25 18:00 03/17/25 19:23 0.5 MG Ondansetron HCl 4 mg Q4HPRN PRN IV 03/17/25 16:30 03/18/25 08:05 4 MG Examination: GENERAL:Normal, HEENT:Normal, NECK:Normal, LUNGS:Normal, CVS:Normal, ABDOMEN:Normal, MSK:Normal, SKIN:Normal, NEURO:Normal, :Normal laboratory and microbiology Laboratory Tests 03/18/25 06:31 Test 03/18/25 06:31 Range/Units Serum Glucose 161 H 74-106 mg/dL Problem List/Assessment/Plan Problem List/Assessment/Plan * Status post hysterectomy with bilateral salpingectomy and bilateral ovarian transposition. The patient will be placed on IV fluids and pain medication and followed up by Dr. Muniz. * Status post egg retrieval for which she will continue on carbegoline * Obesity. Plan discussed with: Patient My Orders My Orders Orders - EDUARDO MEZA MD Procedure Category Date Status Time (Nf) Cabergoline PHA 03/17/25 In Process 18:00 Ondansetron Hcl PHA 03/17/25 In Process (Zofran) 16:30 Lactated Ringers Lr PHA 03/18/25 Transmitted 08:45 Basic Metabolic Panel LAB 03/19/25 Verified 06:00 Complete Blood Count LAB 03/19/25 Verified 06:00 Date of Service: Mar 18, 2025 Billing Provider: EDUARDO MEZA MD Common Visit Codes: [id number] INP/OBS CARE(HIGH) EDUARDO MEZA MD Mar 18, 2025 08:40
[2025-03-18] MEDS: LACTATED RINGER'S 1,000 ML IV SCH (09:41)
[2025-03-18] MEDS ORDERED: MORPHINE SULFATE INJ 2 MG/ml SYRG IV PRN (11:30)
--- NOTE | 2025-03-18 12:45 | DVHPN2 ---
Chief Complaints Patient reports: No new complaints, Feels better Nursing reports: No new complaints Objective Vitals Vital Signs Date Time Temp Pulse Resp B/P (MAP) Pulse Ox O2 Delivery O2 Flow Rate FiO2 03/18/25 09:00 98.2 111 18 94/51 (65) 91 98.2 03/18/25 08:00 Room Air* 0 21 Medications Current Medications Medications (Trade) Dose Ordered Sig/Keren Route PRN Reason Start Time Stop Time Status Last Admin Acetaminophen/ Hydrocodone Bitart ([place] 5/325MG Tab) 1 tab Q6HPRN PRN PO MODERATE PAIN (4-6 PAIN SCALE) 03/18/25 09:15 Lactated Ringer's 1,000 ml @ 100 mls/hr Q10H IV 03/18/25 08:45 03/18/25 09:41 Morphine Sulfate 2 mg Q3HPRN PRN IV PAIN SCALE 7 THRU 10 03/18/25 11:30 Ondansetron HCl (Zofran) 4 mg Q4HPRN PRN IV NAUSEA / VOMITING 03/17/25 16:30 03/18/25 08:05 Patient Own Medication 0.5 mg QPM PO 03/17/25 18:00 03/17/25 19:23 General: Normal Lungs: Normal Cardiovascular: Normal Abdominal: Soft Extremities: Normal Studies Laboratory Tests 03/18/25 06:31 Test 03/18/25 06:31 Range/Units Serum Glucose 161 H 74-106 mg/dL Ass/Plan Assessment s/p expl lap,radical hysterectomy,ln biopsy and transposition of bilat ovaries s/p egg reterival with ovarian hyperstimulation Plan ambulate milka supportive care Visit Coding OBGYN Date of Service: Mar 18, 2025 Billing Provider: PEGGY ESCALERA DO METAL TRADES INSTRUCTOR Common Visit Codes: [id number] INP/OBS CARE(HIGH) PEGGY ESCALERA DO Mar 18, 2025 12:45
[2025-03-18] MEDS: HYDROcodone-ACET 5/325MG TAB PO PRN (13:31)
[2025-03-19] VITALS (8 sets, daily range): BP systolic 97–107; BP diastolic 63–74; PULSE 79–89; RESP 16–20; TEMP 98–98.7; O2SAT 92–98
[2025-03-19 04:38] LABS: Hematocrit 27.3 % (36.0-46.0); Hemoglobin 9.2 g/dL (12.2-16.2); Mean Corpuscular Hemoglobin 26.3 pg (28.0-32.0); Mean Corpuscular Volume 78.2 fL (80.0-100.0); Nucleated Red Blood Cells % 0.0 %
[2025-03-19 04:52] LABS: Anion Gap 9 (5-15); Calcium 8.0 mg/dL (8.7-10.4); Carbon Dioxide 23 mmol/L (20-31); Chloride 110 mmol/L (98-107); Potassium 4.3 mmol/L (3.5-5.1); Sodium 142 mmol/L (136-145)
[2025-03-19 04:58] LABS: BUN/Creatinine Ratio 12.9 (10.0-20.0); Blood Urea Nitrogen 11 mg/dL (9-23); Glucose 95 mg/dL (74-106)
[2025-03-19] MEDS ORDERED: IBUP-1456 PO (08:00)
[2025-03-19] MEDS ORDERED: HYDR-4072 PO (08:00)
[2025-03-19] MEDS ORDERED: DOCU-94 PO (08:00)
[2025-03-19] MEDS ORDERED: LEVO500T91 PO (08:00)
--- NOTE | 2025-03-19 08:02 | DVHPN2 ---
Chief Complaints Patient reports: No new complaints, Feels better Nursing reports: No new complaints Objective Vitals Vital Signs Date Time Temp Pulse Resp B/P (MAP) Pulse Ox O2 Delivery O2 Flow Rate FiO2 03/19/25 05:00 98.1 82 18 97/63 (74) 94 98.1 03/18/25 20:00 Nasal Cannula* 2 28 Medications Current Medications Medications (Trade) Dose Ordered Sig/Keren Route PRN Reason Start Time Stop Time Status Last Admin Acetaminophen/ Hydrocodone Bitart ([place] 5/325MG Tab) 1 tab Q6HPRN PRN PO MODERATE PAIN (4-6 PAIN SCALE) 03/18/25 09:15 03/18/25 23:43 Lactated Ringer's 1,000 ml @ 100 mls/hr Q10H IV 03/18/25 08:45 03/18/25 18:49 Morphine Sulfate 2 mg Q3HPRN PRN IV PAIN SCALE 7 THRU 10 03/18/25 11:30 General: Normal Lungs: Normal Cardiovascular: Normal Abdominal: Soft Extremities: Normal Studies Laboratory Tests 03/19/25 04:10 Test 03/19/25 04:10 Range/Units Serum Glucose 95 74-106 mg/dL Ass/Plan Assessment s/p expl lap,radical hysterectomy,ln biopsy and transposition of bilat ovaries s/p egg reterival with ovarian hyperstimulation Plan pt is doing well,may dc home fu with dr lyle in 2 wks ,may fu with me in 1 wk Visit Coding OBGYN Date of Service: Mar 19, 2025 Billing Provider: PEGGY ESCALERA DO INSURANCE CLAIM APPROVER Common Visit Codes: [id number] INP/OBS CARE(HIGH) PEGGY ESCALERA DO Mar 19, 2025 08:02
--- NOTE | 2025-03-19 08:10 | DVHPN2 ---
Subjective Abdominal pain due to surgical wound controlled with oral pain killers Reviewed: Care Plan, H&P, Labs, Medications, Previous Orders, Radiology, Other (Consultation) Changes from previous H/P or p: No Changes Objective Vitals Vital Signs Date Time Temp Pulse Resp B/P (MAP) Pulse Ox O2 Delivery O2 Flow Rate FiO2 03/19/25 05:00 98.1 82 18 97/63 (74) 94 98.1 03/18/25 20:00 Nasal Cannula* 2 28 Intake/Output Intake and Output 03/19/25 07:00 Intake Total 1680 ml Balance 1680 ml Intake Oral 1480 ml IV Total 200 ml # Voids 3 General Appearance: Alert, Oriented X3, Cooperative, No acute distress HEENT: Atraumatic Lungs: Clear to auscultation, Normal air movement Cardiovascular: Regular rate, Normal S1, Normal S2, No murmurs Abdomen: Normal bowel sounds, Soft, Other (Mild tenderness surrounding mid abdomen surgical wound; surgical wound with no signs of bleeding/infection) Extremities: No edema Neuro: Normal speech, Cranial nerves 3-12 NL Psych/Mental Status: Mental status NL, Mood NL Medications Current Medications Medications Dose Ordered Sig/Keren Route Start Time Stop Time Status Last Admin Dose Admin Gabapentin 600 mg DAILY PO 03/17/25 10:00 Ketorolac Tromethamine 15 mg Q6HPRN IV 03/17/25 12:00 03/22/25 11:59 03/19/25 05:58 15 MG Piperacillin Sod/ Tazobactam Sod 100 ml @ 25 mls/hr Q6HR IV 03/17/25 12:00 03/19/25 05:58 25 MLS/HR Nitroglycerin 0.4 mg Q5MINP PRN SL 03/17/25 10:15 Morphine Sulfate 2 mg Q30M PRN IV 03/17/25 10:15 Patient Own Medication 0.5 mg QPM PO 03/17/25 18:00 03/18/25 17:46 0.5 MG Ondansetron HCl 4 mg Q4HPRN PRN IV 03/17/25 16:30 03/19/25 04:22 4 MG Lactated Ringer's 1,000 ml @ 100 mls/hr Q10H IV 03/18/25 08:45 03/18/25 18:49 100 MLS/HR Acetaminophen/ Hydrocodone Bitart 1 tab Q6HPRN PRN PO 03/18/25 09:15 03/18/25 23:43 1 TAB Morphine Sulfate 2 mg Q3HPRN PRN IV 03/18/25 11:30 Laboratory Results Laboratory Tests 03/19/25 04:10 Chemistry Test 03/19/25 04:10 Calcium Level 8.0 mg/dL (8.7-10.4) L Urinalysis Test 03/15/25 09:47 Urine Color Yellow (Yellow) Urine Clarity Clear (Clear) Urine pH 5.5 (5.0-9.0) Urine Specific [place] 1.024 (1.001-1.035) Urine Protein Negative (Negative) Urine Ketones Negative (Negative) Urine Blood Negative /uL (Negative) Urine Nitrite Negative (Negative) Urine Bilirubin Negative (Negative) Urine Urobilinogen Normal mg/dL (Negative) Urine Leukocyte Esterase Negative /uL (Negative) Urine Glucose Normal mg/dL (Normal) Urine Test Negative (Negative) Labs and/or images reviewed: Labs reviewed by me, Image(s) reviewed by me Assessment/Plan Assessment/Plan Covering: Suspected sepsis with leukocytosis Acute blood loss anemia Invasive cervical cancer s/p hysterectomy with bilateral salpingectomy and bilateral ovarian transposition on March 17, 2025 S/P egg retrieval for which the patient will continue on carbegoline Abdominal pain due to surgical wound Obesity Continue IV antibiotic Continue IV fluids Encouraged to ambulate as much as the patient can Continue pain management as indicated Counseled the patient on the importance of adopting healthy lifestyle with diet and exercise in order to lose weight POSTAL TRANSPORTATION CLERK is following Continue monitoring Goals of care discussed with the patient for 20 minutes; full code This medical document was created using an electronic medical record system with computerized dictation system. Although this document has been carefully reviewed, there might still be some phonetic and typographical errors. These areas are purely typographical due to imperfections of the software programs, and do not reflect any compromise in the patient's medical care. Plan discussed with: Patient, Other (Nurse) Date of Service: Mar 19, 2025 Billing Provider: OLIVIA BENITEZ MD Common Visit Codes: [id number] INP/OBS CARE(HIGH) Secondary Visit Codes: [id number] CARE PLAN 30 MINUTES (20 minutes) OLIVIA BENITEZ MD Mar 19, 2025 08:10
[2025-03-20 01:00] VITALS: BP 96/52; PULSE 87; RESP 18; TEMP 97.9; O2SAT 91
[2025-03-20 05:00] VITALS: BP 101/66; PULSE 77; RESP 18; TEMP 98; O2SAT 94
--- NOTE | 2025-03-20 06:36 | DVHPN2 ---
Subjective Feeling better this morning with no complaints Reviewed: Care Plan, H&P, Labs, Medications, Previous Orders, Radiology, Other (Consultation) Changes from previous H/P or p: Changes Objective Vitals Vital Signs Date Time Temp Pulse Resp B/P (MAP) Pulse Ox O2 Delivery O2 Flow Rate FiO2 03/20/25 05:00 98.0 77 18 101/66 (78) 94 98.0 03/19/25 20:00 Room Air* 0 21 Intake/Output Intake and Output 03/20/25 07:00 Intake Total 1000 ml Balance 1000 ml Intake Oral 900 ml IV Total 100 ml # Voids 4 General Appearance: Alert, Oriented X3, Cooperative, No acute distress HEENT: Atraumatic Lungs: Clear to auscultation, Normal air movement Cardiovascular: Regular rate, Normal S1, Normal S2, No murmurs Abdomen: Normal bowel sounds, Soft, Other (Mild tenderness surrounding mid abdomen surgical wound; surgical wound with no signs of bleeding/infection) Extremities: No edema Neuro: Normal speech, Cranial nerves 3-12 NL Psych/Mental Status: Mental status NL, Mood NL Medications Current Medications Medications Dose Ordered Sig/Keren Route Start Time Stop Time Status Last Admin Dose Admin Gabapentin 600 mg DAILY PO 03/17/25 10:00 Ketorolac Tromethamine 15 mg Q6HPRN IV 03/17/25 12:00 03/22/25 11:59 03/20/25 05:57 15 MG Piperacillin Sod/ Tazobactam Sod 100 ml @ 25 mls/hr Q6HR IV 03/17/25 12:00 03/20/25 05:57 25 MLS/HR Nitroglycerin 0.4 mg Q5MINP PRN SL 03/17/25 10:15 Morphine Sulfate 2 mg Q30M PRN IV 03/17/25 10:15 Patient Own Medication 0.5 mg QPM PO 03/17/25 18:00 03/19/25 17:55 0.5 MG Ondansetron HCl 4 mg Q4HPRN PRN IV 03/17/25 16:30 03/19/25 16:14 4 MG Lactated Ringer's 1,000 ml @ 100 mls/hr Q10H IV 03/18/25 08:45 03/20/25 03:42 100 MLS/HR Acetaminophen/ Hydrocodone Bitart 1 tab Q6HPRN PRN PO 03/18/25 09:15 03/18/25 23:43 1 TAB Morphine Sulfate 2 mg Q3HPRN PRN IV 03/18/25 11:30 Laboratory Results Laboratory Tests 03/19/25 04:10 Urinalysis Test 03/15/25 09:47 Urine Color Yellow (Yellow) Urine Clarity Clear (Clear) Urine pH 5.5 (5.0-9.0) Urine Specific [place] 1.024 (1.001-1.035) Urine Protein Negative (Negative) Urine Ketones Negative (Negative) Urine Blood Negative /uL (Negative) Urine Nitrite Negative (Negative) Urine Bilirubin Negative (Negative) Urine Urobilinogen Normal mg/dL (Negative) Urine Leukocyte Esterase Negative /uL (Negative) Urine Glucose Normal mg/dL (Normal) Urine Test Negative (Negative) Labs and/or images reviewed: Labs reviewed by me, Image(s) reviewed by me Assessment/Plan Assessment/Plan Covering: A 29-year-old female patient with past medical history of obesity and invasive cervical cancer; who was admitted after hysterectomy for monitoring. Suspected sepsis with leukocytosis Acute blood loss anemia Invasive cervical cancer s/p hysterectomy with bilateral salpingectomy and bilateral ovarian transposition on March 17, 2025 S/P egg retrieval for which the patient will continue on cabergoline Abdominal pain due to surgical wound Obesity Received IV antibiotics as inpatient; discharged on levofloxacin as per Dr. Muniz Received IV fluids Stable hemoglobin level Received IV pain killers during admission; discharged on [place] as per Dr. Muniz Counseled the patient on the importance of adopting healthy lifestyle with diet and exercise in order to lose weight To follow up with Dr. Stout within one week and with Dr. Muniz within one week To follow up with [facility] within two weeks This medical document was created using an electronic medical record system with computerized dictation system. Although this document has been carefully reviewed, there might still be some phonetic and typographical errors. These areas are purely typographical due to imperfections of the software programs, and do not reflect any compromise in the patient's medical care. Plan discussed with: Patient, Other My Orders Orders - OLIVIA STOUT MD Procedure Category Date Status Time Complete Blood Count LAB 03/20/25 Logged 04:00 Comprehensive LAB 03/20/25 Logged Metabolic Panel 04:00 Code Status CODE 03/19/25 Transmitted 08:50 Date of Service: Mar 20, 2025 Billing Provider: OLIVIA STOUT MD Common Visit Codes: [id number] INP/OBS CARE(MOD) OLIVIA STOUT MD Mar 20, 2025 06:36
[2025-03-20 07:52] LABS: Hematocrit 28.9 % (36.0-46.0); Hemoglobin 9.5 g/dL (12.2-16.2); Mean Corpuscular Hemoglobin 26.1 pg (28.0-32.0); Mean Corpuscular Volume 79.3 fL (80.0-100.0); Nucleated Red Blood Cells % 0.0 %
[2025-03-20 08:08] LABS: Alanine Aminotransferase 24 U/L (7-40); Alkaline Phosphatase 47 U/L (46-116); Anion Gap 8 (5-15); BUN/Creatinine Ratio 10.8 (10.0-20.0); Bilirubin, Total 0.5 mg/dL (0.2-1.0); Blood Urea Nitrogen 9 mg/dL (9-23); Carbon Dioxide 24 mmol/L (20-31); Chloride 107 mmol/L (98-107); Glucose 82 mg/dL (74-106); Potassium 4.6 mmol/L (3.5-5.1); Sodium 139 mmol/L (136-145)
[2025-03-20 08:11] LABS: Albumin 2.9 g/dL (3.2-4.8); Calcium 7.8 mg/dL (8.7-10.4); Total Protein 5.0 g/dL (5.7-8.2)
--- NOTE | 2025-03-20 08:17 | DVHDS2 ---
Discharge Summary Date of Admission Mar 17, 2025 at 10:09 Date of Discharge: Mar 20, 2025 Admitting Diagnosis Admitted after hysterectomy for monitoring Wounds: Hysterectomy abdominal surgical wound Labs/Diagnostic Data: Laboratory Results Test 03/20/25 06:16 03/17/25 21:13 03/15/25 09:47 White Blood Count 11.5 10^3/uL (4.4-10.8) Red Blood Count 3.64 10^6/uL (4.0-5.20) Hemoglobin 9.5 g/dL (12.2-16.2) Hematocrit 28.9 % (36.0-46.0) Mean Corpuscular Volume 79.3 fL (80.0-100.0) Mean Corpuscular Hemoglobin 26.1 pg (28.0-32.0) Mean Corpuscular Hemoglobin Concent 32.9 g/dL (32.0-36.0) Red Cell Distribution Width 18.8 % (11.8-14.3) Platelet Count 300 10^3/uL (140-450) Mean Platelet Volume 7.3 fL (6.9-10.8) Neutrophils (%) (Auto) 71.7 % (37.0-80.0) Lymphocytes (%) (Auto) 19.0 % (10.0-50.0) Monocytes (%) (Auto) 8.7 % (0.0-12.0) Eosinophils (%) (Auto) 0.3 % (0.0-7.0) Basophils (%) (Auto) 0.3 % (0.0-2.0) Neutrophils # (Auto) 8.3 10 ^3/uL (1.6-8.6) Lymphocytes # (Auto) 2.2 10 ^3/uL (0.4-5.4) Monocytes # (Auto) 1.0 10 ^3/uL (0-1.3) Eosinophils # (Auto) 0 10 ^3/uL (0-0.8) Basophils # (Auto) 0 10 ^3/uL (0-0.2) Nucleated Red Blood Cells 0.0 % Sodium Level 139 mmol/L (136-145) Potassium Level 4.6 mmol/L (3.5-5.1) Chloride Level 107 mmol/L (98-107) Carbon Dioxide Level 24 mmol/L (20-31) Anion Gap 8 (5-15) Blood Urea Nitrogen 9 mg/dL (9-23) Creatinine 0.83 mg/dL (0.550-1.02) Glomerular Filtration Rate Calc 97 mL/min (>90) BUN/Creatinine Ratio 10.8 (10.0-20.0) Serum Glucose 82 mg/dL (74-106) Calcium Level 7.8 mg/dL (8.7-10.4) Total Bilirubin 0.5 mg/dL (0.2-1.0) Aspartate Amino Transferase (AST) 19 U/L (13-40) Alanine Aminotransferase (ALT) 24 U/L (7-40) Alkaline Phosphatase 47 U/L (46-116) Total Protein 5.0 g/dL (5.7-8.2) Albumin 2.9 g/dL (3.2-4.8) Prothrombin Time 10.4 sec (9.3-11.8) Prothrombin Time INR 0.98 (0.9-1.15) Activated Partial Thromboplast Time 32.5 SEC (24.5-34.5) Urine Color Yellow (Yellow) Urine Clarity Clear (Clear) Urine pH 5.5 (5.0-9.0) Urine Specific [place] 1.024 (1.001-1.035) Urine Protein Negative (Negative) Urine Ketones Negative (Negative) Urine Blood Negative /uL (Negative) Urine Nitrite Negative (Negative) Urine Bilirubin Negative (Negative) Urine Urobilinogen Normal mg/dL (Negative) Urine Leukocyte Esterase Negative /uL (Negative) Urine Glucose Normal mg/dL (Normal) Urine Test Negative (Negative) Luteinizing Hormone 58.7 IU/L Beta HCG, Quantitative 0.3 mIU/mL (1.5-4.2) Other Laboratory Tests 03/20/25 06:16 Brief Hx & Hospital Course: Covering: A 29-year-old female patient with past medical history of obesity and invasive cervical cancer; who was admitted after hysterectomy for monitoring. Suspected sepsis with leukocytosis; leukocytosis trending now Acute blood loss anemia; hemoglobin stable Invasive cervical cancer s/p hysterectomy with bilateral salpingectomy and bilateral ovarian transposition on March 17, 2025 S/P egg retrieval for which the patient will continue on cabergoline Abdominal pain due to surgical wound Obesity Received IV antibiotics as inpatient; discharged on levofloxacin as per Dr. Muniz Received IV fluids Received IV pain killers during admission; discharged on [address] as per Dr. Muniz Counseled the patient on the importance of adopting healthy lifestyle with diet and exercise in order to lose weight To follow up with Dr. Stout within one week and with Dr. Muniz within one week To follow up with Priscila within two weeks This medical document was created using an electronic medical record system with computerized dictation system. Although this document has been carefully reviewed, there might still be some phonetic and typographical errors. These areas are purely typographical due to imperfections of the software programs, and do not reflect any compromise in the patient's medical care. Consults/Reason for consult [facility] for invasive cervical cancer Operations or Procedures Hysterectomy with bilateral salpingectomy and bilateral ovarian transposition on March 17, 2025 Condition at Discharge: Stable Final Diagnosis/Problems List Suspected sepsis with leukocytosis Acute blood loss anemia Invasive cervical cancer s/p hysterectomy with bilateral salpingectomy and bilateral ovarian transposition on March 17, 2025 S/P egg retrieval for which the patient will continue on carbegoline Abdominal pain due to surgical wound Obesity Discharge Disposition: Home Discharge Instruct/Medications Diet: Regular Activity: No Restrictions, As Tolerated Follow Up/Referral: Dr. Stout next Saturday; Dr. Muniz within 1 to 2 weeks; Priscila within 1 to 2 week Medications: As per Dr. Muniz Scheduled Docusate Sodium (Colace), 1 CAP PO BID Levofloxacin Hemihydrate (Levaquin 500 Mg), 1 TAB PO DAILY Scheduled PRN Hydrocodone-Acetaminophen (Hydrocodone/Acetaminophen 10-325 mg), 1 TAB PO BID PRN Ibuprofen (Ibuprofen), 800 MG PO TID PRN Miscellaneous Medications Cabergoline (Cabergoline), 0.5 MG PO, (Reported) Leuprolide Acetate (3 Month) (Leuprolide Acetate), 22.5 MG IM, (Reported) Discharge Statement: "Patient was advised to return to the ER or call 911 if any headaches, dizziness, shortness of breath, chest pain, abdominal pain, bleeding, fevers, or worsening of medical condition. Patient was counseled about treatment plan, medications, possible side effects, patientverbalized understanding. All questions were answered to the best of my ability. This discharge took greater then 30 minutes in planning, reviewing documentation, counseling the patient, and discussing with other team members." ASSESSMENT ASSESSMENT Assessment Suspected sepsis with leukocytosis Acute blood loss anemia Invasive cervical cancer s/p hysterectomy with bilateral salpingectomy and bilateral ovarian transposition on March 17, 2025 S/P egg retrieval for which the patient will continue on carbegoline Abdominal pain due to surgical wound Obesity Date of Service: Mar 20, 2025 Billing Provider: OLIVIA STOUT MD Common Visit Codes: 58594-PKQ/OBS DISCH DAY >30min OLIVIA STOUT MD Mar 20, 2025 08:17
[2025-03-20 08:55] VITALS: BP 99/59; PULSE 67; TEMP 36.7
[2025-03-20 09:00] VITALS: BP 99/59; PULSE 67; RESP 16; TEMP 98.4; O2SAT 98
[2025-03-20] MEDS ORDERED: HYDR-4072 PO (09:46)
== END 2025-03-20 10:05 | disposition home or self-care (01) | DRG 854 ==
LOC: SUR 06:24 → OVERFLOW 10:09 → CENTRAL 11:48
PROVIDERS: ADMIT Internal Medicine; ATTEND Internal Medicine
PROC: 07BC0ZX Excision of Pelvis Lymphatic, Open Approach, Diagnostic (ICD-10-PCS; 2025-03-17)
PROC: 0UT90ZZ Resection of Uterus, Open Approach (ICD-10-PCS; 2025-03-17)
PROC: 0US00ZZ Reposition Right Ovary, Open Approach (ICD-10-PCS; 2025-03-17)
PROC: 07BD0ZX Excision of Aortic Lymphatic, Open Approach, Diagnostic (ICD-10-PCS; 2025-03-17)
PROC: 0US Female Reproductive System, Reposition (ICD-10-PCS; 2025-03-17)
PROC: 0UT70ZZ Resection of Bilateral Fallopian Tubes, Open Approach (ICD-10-PCS; principal; 2025-03-17 07:23)
DX: A41.9 Sepsis, unspecified organism (principal); D62 Acute posthemorrhagic anemia; N98.1 Hyperstimulation of ovaries; C53.9 Malignant neoplasm of cervix uteri, unspecified; E66.9 Obesity, unspecified; Z68.34 Body mass index [BMI] 34.0-34.9, adult
CPT/HCPCS: 36415; 80048; 80053; 81003; 81025; 83002; 84702; 85025; 85610; 85730; 86850; 86900; 86901; G0378; J0131; J0169; J0330; J1100; J1885; J2250; J2405; J2543; J2704; J3490